=== PATIENT | male | born 1980 | race Caucasian/White ===

== ENCOUNTER 2017-08-12 12:50 | Emergency (ER) | payer SELFPAY ==
[2017-08-12 13:37] LABS: BASO # 0.1 10^3/uL (0.0-0.2); BASO % 0.5 % (0.0-1.0); EOS # 0.1 10^3/uL (0.0-0.50); EOS % 0.9 % (0.0-3.0); HEMATOCRIT 43.4 % (42.0-52.0); HEMOGLOBIN 15.6 g/dl (13.5-17.5); IMMATURE GRANULOCYTE % 0.4 % (0-3.0); LYMPH # 3.1 10^3/uL (1.5-4.5); MEAN CORPUSCULAR HEMOGLOBIN 32.2 pg (27.0-33.0); MEAN CORPUSCULAR HGB CONC 35.9 g/dl (32.0-36.5); MEAN CORPUSCULAR VOLUME 89.5 fl (80.0-96.0); MONO # 0.8 10^3/uL (0.0-0.8); MONO % 7.1 % (0.0-5.0); NEUTROPHILS # 6.7 10^3/uL (1.8-7.7); NEUTROPHILS % 62.1 % (36.0-66.0); PLATELET COUNT, AUTOMATED 252 10^3/uL (150-450); RED BLOOD COUNT 4.85 10^6/uL (4.30-6.10); RED CELL DISTRIBUTION WIDTH 12.4 % (11.5-14.5); WHITE BLOOD COUNT 10.8 10^3/uL (4.0-10.0)
[2017-08-12 13:38] LABS: KETONE, URINE AUTO RFX 1+ mg/dL (NEGATIVE); LEUKOCYTE ESTERASE UR AUTO RFX NEGATIVE (NEGATIVE); MUCUS, URINE RFX SMALL (NEGATIVE); NITRITE, URINE AUTO RFX NEGATIVE (NEGATIVE); RBC, URINE AUTO RFX TNTC /HPF (0-3); SPECIFIC GRAVITY UR AUTO RFX 1.023 (1.002-1.035); SQUAM EPITHELIAL CELL UR AURFX 0 /HPF (0-6); WBC, URINE AUTO RFX 1 /HPF (0-3)
[2017-08-12] MEDS: ONDANSETRON 4MG/2ML VIAL (J2405) IV ×2 (13:39→14:45)
[2017-08-12] MEDS: KETOROLAC 30 MG/ML VIAL (J1885) IV (13:39)
[2017-08-12] MEDS: NS 1,000 ML IV (13:40)
[2017-08-12 13:51] LABS: ALBUMIN 3.8 GM/DL (3.2-5.2); ALBUMIN/GLOBULIN RATIO 1.03 (1.00-1.93); ALKALINE PHOSPHATASE 108 U/L (45-117); ALT/SGPT 74 U/L (12-78); ANION GAP 9 MEQ/L (8-16); AST/SGOT 30 U/L (7-37); BILIRUBIN,TOTAL 0.7 MG/DL (0.2-1.0); BLOOD UREA NITROGEN 15 MG/DL (7-18); CALCIUM LEVEL 8.5 MG/DL (8.5-10.1); CARBON DIOXIDE LEVEL 25 MEQ/L (21-32); CHLORIDE LEVEL 107 MEQ/L (98-107); CREATININE FOR GFR 1.01 MG/DL (0.70-1.30); GLOMERULAR FILTRATION RATE > 60.0 (>60); GLUCOSE, FASTING 116 MG/DL (70-100); POTASSIUM SERUM 3.4 MEQ/L (3.5-5.1); SODIUM LEVEL 141 MEQ/L (136-145); TOTAL PROTEIN 7.5 GM/DL (6.4-8.2)
[2017-08-12] MEDS: CIPROFLOXACIN 500 MG TAB PO (14:45)
== END 2017-08-12 14:47 | disposition home or self-care (01) ==
LOC: M ED 12:50
DX: K52.9 Noninfective gastroenteritis and colitis, unspecified (principal); R31.9 Hematuria, unspecified; Z72.0 Tobacco use
CPT/HCPCS: J2405

== ENCOUNTER → 2017-09-20 | Outpatient (CLI) | payer BC | LOC: M WUC 12:08 | DX: M51.36 Other intervertebral disc degeneration, lumbar region (principal); M51.37 Other intervertebral disc degeneration, lumbosacral region | CPT/HCPCS: 72110 ==

== ENCOUNTER 2018-11-06 08:34 | Emergency (ER) | payer BC ==
[~2018-11-06] VITALS: Ht 172.7 cm; Wt 97.3 kg
[~2018-11-06 08:34] MED LIST: CIPR-249 PO; KETO10TAB PO; PROT1TAB2 PO; ZOFR4TAB14 PO
[2018-11-06 09:20] LABS: APPEARANCE, URINE CLEAR (CLEAR); BACTERIA, URINE AUTO 1+ (NEGATIVE); BILIRUBIN, URINE AUTO NEGATIVE (NEGATIVE); BLOOD, URINE BLOOD NEGATIVE (NEGATIVE); COLOR, URINE YELLOW (YELLOW); GLUCOSE, URINE (UA) AUTO NEGATIVE (NEGATIVE); KETONE, URINE AUTO NEGATIVE (NEGATIVE); LEUKOCYTE ESTERASE, URINE AUTO TRACE (NEGATIVE); MUCUS, URINE MODERATE (NEGATIVE); NITRITE, URINE AUTO NEGATIVE (NEGATIVE); PROTEIN, URINE AUTO NEGATIVE (NEGATIVE); RBC, URINE AUTO 2 /HPF (0-3); SPECIFIC GRAVITY URINE AUTO 1.028 (1.002-1.035); SQUAMOUS EPITHELIAL CELL UR AU 0 /HPF (0-6); UROBILINOGEN, URINE AUTO 0.2 mg/dL (0.0-2.0); WBC, URINE AUTO 26 /HPF (0-3)
[2018-11-06 11:13] LABS: CHLAMYDIA DNA AMPLIFICATION NEGATIVE (NEGATIVE); GC DNA AMPLIFICATION POSITIVE (NEGATIVE)
[2018-11-06] MEDS ORDERED: LIDOCAINE 1% SDV 5 ML VIAL DILUENT ONE (11:45)
[2018-11-06] MEDS ORDERED: cefTRIAXone SOD 250 MG VIAL (J0696) IM ONE (11:45)
[2018-11-06 12:07] VITALS: BP 121/65
[2018-11-07 10:30] LABS: HEPATITIS B SURFACE ANTIBODY NEGATIVE (POSITIVE); HEPATITIS B SURFACE ANTIGEN NEGATIVE (NEGATIVE); HEPATITIS C VIRUS ABY INDEX 0.1 INDEX (<0.8); HIV 1&2 SCREEN CENTAUR NEGATIVE (NEGATIVE)
== END 2018-11-06 12:08 | disposition home or self-care (01) ==
LOC: M ED 08:34
DX: A54.09 Other gonococcal infection of lower genitourinary tract (principal); F17.200 Nicotine dependence, unspecified, uncomplicated
CPT/HCPCS: 36415; 81001; 86706; 86780; 86803; 87340; 87389; 87661; 96372; 99284; J0696

== ENCOUNTER 2018-11-09 11:59 | Emergency (ER) | payer BC ==
[~2018-11-09] VITALS: Ht 172.7 cm; Wt 98.6 kg
[2018-11-09] MEDS ORDERED: AZITHROMYCIN 250 MG TAB PO ONE (12:15)
[2018-11-09] MEDS ORDERED: LIDOCAINE 1% SDV 5 ML VIAL DILUENT ONE (12:15)
[2018-11-09] MEDS ORDERED: cefTRIAXone SOD 250 MG VIAL (J0696) IM ONE (12:15)
[2018-11-09 12:44] VITALS: BP 119/75
== END 2018-11-09 12:45 | disposition home or self-care (01) ==
LOC: M ED 11:59
DX: Z20.2 Contact with and (suspected) exposure to infections with a predominantly sexual mode of transmission (principal); A54.09 Other gonococcal infection of lower genitourinary tract; F17.210 Nicotine dependence, cigarettes, uncomplicated
CPT/HCPCS: 96372; 99283; J0696

== ENCOUNTER 2019-07-27 09:13 | Emergency (ER) | payer BC ==
[~2019-07-27] VITALS: Ht 175.3 cm; Wt 100.7 kg
[2019-07-27] MEDS ORDERED: HYDR-3713 PO (09:26)
[2019-07-27] MEDS ORDERED: METH750T2 PO (09:26)
[2019-07-27] MEDS ORDERED: NEUR100C PO (09:26)
--- NOTE | 2019-07-27 10:08 | REP ---
Clinical: Severe back pain. Technique: Axial noncontrast images from mid T11 through mid sacrum with coronal and sagittal re-formations. Findings: The vertebral bodies are intact and normal in contour without evidence for acute fracture / compression injury or subluxation. The posterior elements and spinous processes are intact and without hypertrophic facet changes or obvious foraminal narrowing. The L3-4 level demonstrates mild posterior/paracentral broad-based disc bulge causing effacement along the anterior thecal sac. Mild hypertrophic changes to the ligamentum flavum are also noted causing mild narrowing to the bilateral lateral recesses. The exiting nerve roots appear relatively unaffected by CT evaluation. The L4-5 level demonstrates moderate posterior broad-based disc bulge causing effacement along the anterior thecal sac. Mild hypertrophic changes to the ligamentum flavum are also noted causing early moderate narrowing to the bilateral lateral recesses. The exiting nerve roots appear relatively unaffected by CT evaluation. The L5-S1 level demonstrates a moderate posterior/paracentral (right greater than left) disc bulge extending into the neural canal with narrowing to the lateral recesses (right greater than left) but without obvious effacement to the thecal sac and without obvious impingement on the exiting nerve roots by CT evaluation. Impression: Mild/moderate multilevel degenerative disc disease extending from L3-4 through L5- S1. Electronically Signed by Umesh Rodriguez MD 07/27/2019 10:00 A
[2019-07-27] MEDS ORDERED: predniSONE 20 MG TAB PO ONE (10:30)
[2019-07-27] MEDS ORDERED: KETOROLAC 60MG 2ML VIAL IM ONE (10:30)
[2019-07-27] MEDS ORDERED: LIDOCAINE 5% (LIDODERM) PATCH TD ONE (10:30)
[2019-07-27] MEDS ORDERED: PRED20TA PO (10:53)
[2019-07-27] MEDS ORDERED: LIDO5DIS41 TOP (10:53)
[2019-07-27 11:00] VITALS: BP 117/54
[2019-07-27] MEDS ORDERED: **NOTE PATIENT COMMENT** MISC XX SCH (21:00)
--- NOTE | 2019-07-28 10:59 | ED PDOC ---
Post-Departure Follow-Up dr nice faxed formal report of ct ls spine for Tanner Oswald MD Jul 28, 2019 10:59
== END 2019-07-27 11:02 | disposition home or self-care (01) ==
LOC: M ED 09:13
DX: M51.36 Other intervertebral disc degeneration, lumbar region (principal); Z87.891 Personal history of nicotine dependence; M54.5 Low back pain
CPT/HCPCS: 72131; 99283; J1885